=== PATIENT | male | born 1995 | race African-American/Black ===

== ENCOUNTER 2019-02-13 23:46 | Emergency (ER) | payer OTHER ==
[~2019-02-13] VITALS: Ht 167.6 cm; Wt 56.7 kg
[~2019-02-13 23:46] MED LIST: BENZ100C PO; PRED50TA PO; PROAIR RESPICL90 MCG IH
[2019-02-13] MEDS ORDERED: IPRATRPIUM/ALBUTEROL 0.5/2.5MG 3 ML NEBU. ONE (23:53)
[2019-02-14] MEDS ORDERED: IPRATRPIUM/ALBUTEROL 0.5/2.5MG 3 ML NEBU. NEB ONE
[2019-02-14] MEDS ORDERED: predniSONE 20 MG TABLET PO ONE
[2019-02-14 00:20] LABS: INFLUENZA A PATIENT NEGATIVE (NEGATIVE); INFLUENZA B PATIENT NEGATIVE (NEGATIVE)
[2019-02-14] MEDS ORDERED: ALBUTEROL SULFATE 2.5 MG/3 ML NEBU. NEB ONE (02:00)
[2019-02-14] MEDS ORDERED: PRED50TA PO (02:00)
[2019-02-14] MEDS ORDERED: ALBU2.5V8 IH (02:00)
--- NOTE | 2019-02-14 02:06 | PHYS DOC ---
Past Medical History Past Medical History: Asthma Additional Past Medical Histor: seasonal allergies Past Surgical History: No Surgical History Alcohol Use: None Drug Use: None Adult General Chief Complaint Chief Complaint: SHORTNESS OF BREATH HPI HPI Patient is a 23 year old AA male with history of asthma who presents with shortness of breath starting this evening. Patient has been increased inhaler at home with limited relief. Patient reports dry cough. No fever chills, sweats. No prior hospitalizations for asthma. No other acute symptoms or complaints.[] Review of Systems Review of Systems Review symptoms as per history of present illness. All other review symptoms are negative All other systems were reviewed and found to be within normal limits, except as documented in this note. Current Medications Current Medications Current Medications Medications (Trade) Dose Ordered Sig/Luana Start Time Stop Time Status Last Admin Dose Admin Albuterol Sulfate (Ventolin Neb Soln) 5 mg 1X ONCE 02/14/19 02:00 02/14/19 02:01 DC 02/14/19 02:11 5 MG Albuterol/ Ipratropium (Duoneb) 3 ml 1X ONCE 02/14/19 00:00 02/14/19 00:06 DC 02/13/19 23:57 3 ML Prednisone (Prednisone) 60 mg 1X ONCE 02/14/19 00:00 02/14/19 00:06 DC 02/14/19 00:20 60 MG Allergies Allergies Allergies Coded Allergies Type Severity Reaction Last Updated Verified No Known Drug Allergies 11/26/15 No Physical Exam Physical Exam Constitutional: Well developed, well nourished, no acute distress, non-toxic appearance. [] HENT: Normocephalic, atraumatic, bilateral external ears normal, oropharynx moist, no oral exudates, nose normal. [] Eyes: PERRLA, EOMI, conjunctiva normal, no discharge. [] Neck: Normal range of motion, no tenderness, supple, no stridor. [] Cardiovascular:Heart rate regular rhythm, no murmur [] Lungs & Thorax: Respirations nonlabored, mild tachypnea, diminished breath sounds bilaterally with rhonchi and next door a wheezes. Speaks in complete sentences. [] Abdomen: Bowel sounds normal, soft, no tenderness. [] Skin: Warm, dry. [] Back: No tenderness. [] Extremities: No tenderness, no edema. [] Neurologic: Alert and oriented X 3, normal motor function, normal sensory function, no focal deficits noted. [] Psychologic: Affect normal, judgement normal, mood normal. [] Current Patient Data Vital Signs Vital Signs Date Time Temp Pulse Resp B/P (MAP) Pulse Ox O2 Delivery O2 Flow Rate FiO2 02/13/19 23:46 99.2 90 24 135/85 (102) 91 Room Air 99.2 Lab Values Laboratory Tests Test 02/13/19 23:59 Influenza Type A Antigen Negative (NEGATIVE) Influenza Type B Antigen Negative (NEGATIVE) EKG EKG [] Radiology/Procedures Radiology/Procedures [] Course & Med Decision Making Course & Med Decision Making Pertinent Labs and Imaging studies reviewed. (See chart for details) [Acute asthma exacerbation likely secondary to viral illness. PT breathing treatments given with improved air movement. No wheezing appreciated on reevaluation. O2 saturation greater than 95%. Patient instructed to fill inhaler and steroids upon leaving the emergency Department follow-up with local PCP. Return precautions reviewed. Patient verbalizes understanding and agreement discharge instructions prior to departure.] Dragon Disclaimer Dragon Disclaimer This electronic medical record was generated, in whole or in part, using a voice recognition dictation system. Departure Departure Impression: Primary Impression: Asthma exacerbation Disposition: 01 HOME/RESIDENCE PRIOR TO ADM Condition: GOOD Patient Instructions: Asthma, Adult, [id number] Additional Instructions: Please fill medications immediatly after discharge from the ED. Take as directed and follow up with your PCP in 2-3 days for re-evaluation. Return to the ED if new or worsening symptoms. Scripts Prednisone (PREDNISONE) 50 Mg Tablet 1 TAB PO DAILY, #5 TAB Prov: BIGG PITTS DO 02/14/19 Albuterol Sulfate (PROAIR HFA INHALER) 8.5 Gm Hfa.aer.ad 2 PUFF IH PRN Q4-6HRS PRN for wheezing for 21 Days, #1 INHALER 0 Refills Prov: BIGG PITTS DO 02/14/19 BIGG PITTS DO Feb 14, 2019 02:06
[2019-02-14 02:22] VITALS: BP 131/81
== END 2019-02-14 02:30 | disposition home or self-care (01) ==
LOC: ER 23:46
DX: J45.901 Unspecified asthma with (acute) exacerbation (principal)
CPT/HCPCS: 87804; 94640; 99284; J7512; J7613; J7620